=== PATIENT | female | born 1995 | race Caucasian/White ===

== ENCOUNTER 2016-04-30 20:15 | Emergency (ER) | payer OTHER ==
--- NOTE | 2016-04-30 20:43 | UCPHY ---
H & P Time Seen by Provider: 04/30/16 20:27 Patient Type: New HPI/ROS: This patient complains of 10 days of sore throat with a negative rapid strep an outlying clinic last week. Over the past 24 hours she developed new onset of cough, high fevers chills myalgias and coryza. She reports associated diaphoresis. The sore throat distal moderate intensity worsens with swelling. No other exacerbating factors. ROS: HEENT: No ear pain. She is tolerating p.o. intake despite the sore throat. Pulmonary: No pleuritic pain. No respiratory distress. GI: No nausea vomiting diarrhea 7 point ROS is otherwise negative. Past Medical/Surgical History: Otherwise healthy Social History: [employer] student studying physiology Smoking Status: Never smoked Physical Exam: Physical Exam Vital signs are normal. General: No acute distress HEENT: Nose: Clear discharge bilaterally. No sinus tenderness to percussion. Ears: External canals and tympanic membranes are clear with no erythema or abnormal findings bilaterally. Oropharynx: Bilateral tonsillar swelling right more than left with exudate right more than left. No dysphonia. No drooling or stridor. Neck: Supple with no meningismus Eyes: Pupils equal and react to light. Extraocular motions are intact. Lungs: Faint expiratory wheeze bilaterally with her coughing. No rales or rhonchi are noted. Cardiac: Regular rate and rhythm with no murmur gallop or rub Skin: No rash or pallor. Positive diaphoresis Neuro: Alert with no focal deficits noted. Initial differential diagnosis: Influenza, flu-like illness, strep tonsillitis versus viral tonsillitis Constitutional: Initial Vital Signs Temperature (C) 37 C 04/30/16 20:25 Heart Rate 108 H 04/30/16 20:25 Respiratory Rate 16 04/30/16 20:25 Blood Pressure 124/34 H 04/30/16 20:25 O2 Sat (%) 98 04/30/16 20:25 O2 Delivery Mode Room Air Allergies/Adverse Reactions: Sulfa (Sulfonamide Antibiotics) Allergy (Verified 04/30/16 20:24) Home Medications: Medication Instructions Recorded Albuterol Hfa Anes Only [Proair 2 puffs IH Q4 PRN #1 mdi 04/30/16 Hfa Icu (*)] Azithromycin [Zithromax] 250 mg PO DAILY #6 tab 04/30/16 Hydrocodone/APAP 5/325 [[place] 1 - 2 tab PO Q4PRN PRN #10 tab 04/30/16 5/325 (*)] Microgestin 04/30/16 MDM/Departure - MDM Diagnostics: Rapid strep negative. Rapid flu negative. Medications Given: Discontinued Medications Hydrocodone Bitart/Acetaminophen ([place] 5/325mg Prepack#6) 1 btl TAKEHOME EDNOW ONE Stop: 04/30/16 21:32 Last Admin: 04/30/16 21:32 Dose: 1 btl Azithromycin (Zithromax) 500 mg PO EDNOW ONE PRN Reason: Protocol Stop: 04/30/16 21:07 Last Admin: 04/30/16 21:09 Dose: 500 mg ED Course/Re-evaluation: Given fevers with bronchitis findings, will cover with macrolide antibiotic. 1st dose of Zithromax given here. - Depart Disposition: Home, Routine, Self-Care Clinical Impression: Bronchitis, Tonsillitis with exudate Condition: Good Instructions: Hydrocodone/Acetaminophen (By mouth), Acute Bronchitis (ED), Tonsillitis (ED) Additional Instructions: Diagnosis: 1. Bronchitis 2. Tonsillitis Plan: Zithromax antibiotic Albuterol inhaler if needed for cough, wheeze or shortness of breath Ibuprofen-600 mg per 6 hours as needed for pain fevers. Tylenol or Vicodin in addition if needed. No driving, alcohol school or work on Vicodin Stand Alone Forms: School Excuse Prescriptions: Albuterol Hfa Anes Only [Proair Hfa Icu (*)] 2 puffs IH Q4 PRN #1 mdi PRN Reason: Wheezing Azithromycin [Zithromax] 250 mg PO DAILY #6 tab Hydrocodone/APAP 5/325 [[place] 5/325 (*)] 1 - 2 tab PO Q4PRN PRN #10 tab PRN Reason: Pain Referrals: NONE *PRIMARY CARE P,. [Primary Care Provider] - As per Instructions - PQRS PQRS Measurement: NA
[2016-04-30 20:47] VITALS: BP 124/34; PULSE 108; RESP 16; TEMP 98.6; O2SAT 98
[2016-04-30] MEDS ORDERED: AZITHROMYCIN 250 MG TAB PO ONE (21:06)
[2016-04-30] MEDS ORDERED: HYDROCOD/APAP 5/325 PREPACK#6 BTL TAKEHOME ONE ×3 (21:10→21:31)
== END 2016-04-30 21:33 | disposition home or self-care (01) ==
LOC: CED 20:15
DX: J40 Bronchitis, not specified as acute or chronic (principal); J03.90 Acute tonsillitis, unspecified
CPT/HCPCS: 87400-PO; 87880-PO; 99203-PO; G0463-PO